=== PATIENT | female | born 1995 | race Two or more races ===

== ENCOUNTER 2019-11-08 08:00 | Outpatient (CLI) | payer OTHER | END 2019-11-08 15:00 | disposition home or self-care (01) | LOC: PPH VACUNA 08:00 | DX: Z23 Encounter for immunization (principal) ==

== ENCOUNTER → 2020-11-27 16:00 | Outpatient (CLI) | payer OTHER | END | disposition home or self-care (01) | LOC: PPH VACUNA 16:00 | PROVIDERS: ATTEND Emergency Medicine Pediatric Emergency Medicine | DX: Z23 Encounter for immunization (principal) ==

== ENCOUNTER 2021-03-06 09:00 | Outpatient (CLI) | payer OTHER | END 2021-03-06 09:15 | disposition home or self-care (01) | LOC: PPH VACUNA 09:00 | PROVIDERS: ATTEND Emergency Medicine Pediatric Emergency Medicine | DX: Z23 Encounter for immunization (principal) ==

== ENCOUNTER 2021-10-21 08:00 | Outpatient (CLI) | payer OTHER | END 2021-10-21 08:05 | disposition home or self-care (01) | LOC: PPH VACUNA 08:00 | PROVIDERS: ATTEND Emergency Medicine Pediatric Emergency Medicine | DX: Z23 Encounter for immunization (principal) ==

== ENCOUNTER → 2022-04-06 07:51 | Outpatient (CLI) | payer OTHER | END | disposition home or self-care (01) | LOC: LAB 07:51 | PROVIDERS: ATTEND Specialist | DX: Z34.00 Encounter for supervision of normal first pregnancy, unspecified trimester (principal) ==

== ENCOUNTER 2022-09-16 07:14 | Outpatient (CLI) | payer OTHER | END 2022-09-16 07:17 | disposition home or self-care (01) | LOC: LAB 07:14 | PROVIDERS: ATTEND Specialist | DX: Z34.00 Encounter for supervision of normal first pregnancy, unspecified trimester (principal) ==

== ENCOUNTER 2022-10-13 09:28 | Outpatient (CLI) | payer OTHER | END 2022-10-13 09:30 | disposition home or self-care (01) | LOC: LAB 09:28 | PROVIDERS: ATTEND Specialist | DX: Z34.00 Encounter for supervision of normal first pregnancy, unspecified trimester (principal) ==

== ENCOUNTER 2024-02-03 15:00 | Outpatient (CLI) | payer OTHER ==
[~2024-02-03 15:00] MED LIST: LABETALOL HCL200 MG PO; PRENATAL TABLE1 EAC1 PO
== END 2024-02-03 15:10 | disposition home or self-care (01) ==
LOC: PPH VACUNA 15:00
PROVIDERS: ATTEND Emergency Medicine Pediatric Emergency Medicine
DX: Z23 Encounter for immunization (principal)